=== PATIENT | male | born 1955 | race Caucasian/White ===

== ENCOUNTER 2018-04-20 21:17 | Inpatient (IN) | payer OTHER ==
[2018-04-20] MEDS ORDERED: Alum-Mag Hydrox-Simethicone Susp (30 mL) PO ONE (22:23)
[2018-04-20] MEDS ORDERED: Alum-Mag Hydrox-Simethicone Susp (30 mL) ONE (22:36)
--- NOTE | 2018-04-20 22:41 | C.PDOC ---
History Of Present Illness 62 year old male presents with epigastric pain for the past one day. Denies fever, chest pain, dyspnea, nausea, vomiting, or diarrhea. Patient has had similar pain before, he last had it last week and states it eventually went away. He has been taking medication for the pain, notes the pain is constant with no alleviating or exacerbating factors. Time Seen by Provider: 04/20/18 22:03 Chief Complaint (Nursing): Abdominal Pain History Per: Patient History/Exam Limitations: no limitations Onset/Duration Of Symptoms: Days (1) Current Symptoms Are (Timing): Still Present Location Of Pain/Discomfort: Epigastric Quality Of Discomfort: Unable To Describe Associated Symptoms: denies: Fever, Chills, Nausea, Vomiting, Chest Pain, Other (Dyspnea) Exacerbating Factors: None Alleviating Factors: None Recent travel outside of the [place]: No Past Medical History Reviewed: Historical Data, Nursing Documentation, Vital Signs Vital Signs: Last Vital Signs Temp 98.1 F 04/20/18 21:25 Pulse 78 04/20/18 21:25 Resp 18 04/20/18 21:25 BP 144/82 04/20/18 21:25 Pulse Ox 96 04/20/18 21:25 Family History: States: Unknown Family Hx - Social History Hx Alcohol Use: Yes Hx Substance Use: No - Immunization History Hx Tetanus Toxoid Vaccination: No Hx Influenza Vaccination: No Hx Pneumococcal Vaccination: No Review Of Systems Constitutional: Negative for: Fever, Chills ENT: Negative for: Nose Discharge, Nose Congestion Cardiovascular: Negative for: Chest Pain, Palpitations Respiratory: Negative for: Shortness of Breath Gastrointestinal: Positive for: Abdominal Pain. Negative for: Vomiting, Di arrhea Genitourinary: Negative for: Dysuria, Hematuria Musculoskeletal: Negative for: Back Pain Neurological: Negative for: Weakness, Numbness Physical Exam - Physical Exam Appears: Non-toxic Skin: Normal Color, Warm, Dry Head: Atraumatic, Normacephalic Eye(s): bilateral: Normal Inspection Oral Mucosa: Moist Neck: Normal, Supple Chest: Symmetrical, No Tenderness Cardiovascular: Rhythm Regular Respiratory: Normal Breath Sounds, No Rales, No Rhonchi, No Wheezing Gastrointestinal/Abdominal: Soft, Tenderness (Mild epigastric), No Guarding, No Rebound Back: No CVA Tenderness Neurological/Psych: Oriented x3, Normal Speech ED Course And Treatment - Laboratory Results Result Diagrams: 04/20/18 22:40 04/20/18 22:40 O2 Sat by Pulse Oximetry: 96 (Room air) Pulse Ox Interpretation: Normal - CT Scan/US CT abd/pel Other Rad Studies (CT/US): Read By Radiologist, Radiology Report Reviewed CT/US Interpretation: CT SCAN OF THE ABDOMEN AND PELVIS WITHOUT ORAL OR IV CONTRAST. CLINICAL INDICATION: Patient with mid upper quadrant pain. TECHNIQUE: Axial and reformatted sagittal and coronal images of the abdomen pelvis obtained without IV contrast administration. COMPARISON: None. FI NDINGS: Bilateral basilar subsegmental atelectatic pulmonary changes. Normal unenhanced liver. Diffusely thickened gallbladder and nondilated extrahepatic biliary system. Normal unenhanced spleen. Normal pancreas. . Normal bilateral adrenal glands. Normal size of the right kidney. There is no right renal mass. There are no right renal calculi. There is no right hydronephrosis. Normal visualized right ureter. Normal size of the left kidney. There is no left renal mass. There are no left renal calculi. There is no left hydronephrosis. Normal visualized left ureter. Normal visualized stomach. Normal small intestine. Uncomplicated diverticulosis with mild amount of fecal residue in the colon. The appendix is visualized and appears normal. There is no demonstrated peritoneal fluid. Normal abdominal aorta. Normal inferior vena cava. Normal retroperitoneum. . Normal urinary bladder. There is no pelvic mass lesion or lymphadenopathy. There is no pelvic fluid. 4.8x3.5 cm benign lipoma of the right lateral anterior abdominal wall. . Normal abdominal wall. Normal osseous structures. IMPRESSION: Thickened gallbladder which is suspicious for an acute inflammatory pathology. Sonographic evaluation is suggested. Reactive thickening of the adjacent second portion of the duodenum. US gallbladder Other Rad Studies (CT/US): Read By Radiologist CT/US Interpretation: Impression: Acute calculus cholecystitis Medical Decision Making Medical Decision Making: Plan: * EKG * Blood work * Maalox * Viscous lidocaine Patient given meds and labs done. Results discussed with patient, who still complains of pain. He then produced an Rx from Dr. Olivarez for a stat CT abd/pe lvis without contrast, so this was ordered. Toradol ivp ordered for continued pain after GI cocktail. CT results noted. U/s ordered. Ultrasound shows acute cholecystitis. Results discussed with patient. 8163- Surgery consulted. 0412- Surgery resident at bedside seeing patient. Discussed case with Dr. Castro, will consult but would like admission to medicine service. 0430- Case discussed with Dr. Rosario, hospitalist exhibition organiser, who accepts patient for admission. Disposition - Disposition Disposition: HOSPITALIZED Disposition Time: 04:30 Condition: STABLE Forms: [facility] (Mongolian) - Clinical Impression Clinical Impression: Cholecystitis - Scribe Statement The provider has reviewed the documentation as recorded by the Scribjulio cesar Nicolas All medical record entries made by the Scribe were at my direction and personally dictated by me. I have reviewed the chart and agree that the record accurately reflects my personal performance of the history, physical exam, medical decision making, and the department course for this patient. I have also personally directed, reviewed, and agree with the discharge instructions and disposition.
[2018-04-20 22:45] LABS: BASO % 0.5 % (0.0-2.0); EOS # 0.1 K/uL (0.0-0.7); EOS % 0.7 % (0.0-4.0); HEMOGLOBIN 13.9 g/dL (12.0-18.0); LYMPH # 1.6 K/uL (1.0-4.3); LYMPH % 16.5 % (20.0-40.0); MEAN CELL VOLUME 86.3 fL (80.0-94.0); MEAN CORPUSCULAR HEMOGLOBIN 28.4 pg (27.0-31.0); MEAN CORPUSCULAR HGB CONC 32.9 g/dL (33.0-37.0); MEAN PLATELET VOLUME 7.9 fL (7.2-11.7); MONO # 0.4 K/uL (0.0-0.8); MONO % 4.2 % (0.0-10.0); NEUT # 7.6 K/uL (1.8-7.0); NEUT % 78.1 % (50.0-75.0); RBC 4.88 Mil/uL (4.40-5.90); RED CELL DISTRIBUTION WIDTH 13.1 % (11.5-14.5); WHITE BLOOD COUNT 9.7 K/uL (4.8-10.8)
[2018-04-20 23:01] LABS: ALB/GLOB RATIO 1.6 (1.0-2.1); ALBUMIN 4.6 g/dL (3.5-5.0); ALT/SGPT 30 U/L (21-72); AST/SGOT 32 U/L (17-59); BLOOD UREA NITROGEN 12 mg/dL (9-20); GFR NON-AFRICAN AMERICAN > 60; LIPASE 57 U/L (23-300)
--- NOTE | 2018-04-21 04:35 | CP.PCM.HP ---
<Jes Guerrier - Last Filed: 04/21/18 07:03> History of Present Illness - History of Present Illness History of Present Illness: PGY-1 Jes Guerrier D.O. H&P for Dr. Rosario's service: Patient is a 62 yo male with no known medical history who presents with abdominal pain. Pain is located in the epigastric region and does not radiate. Patient states that the pain started yesterday morning. He noticed it during his break at work after eating tea and bread. Patient says the pain started gradually. He describes it as "crampy" as if his "muscles are pulling." He did not do anything to help relieve the pain. He says he had a similar pain last week on Friday, but it was not as severe and went away on its own. He admits to associated nausea and has not had anything to eat or drink since the onset of pain. He denies vomiting. Denies fevers/chills. Denies diarrhea/constipation. 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, quit smoking 25 years ago, denies illicit drug use PMD: Sher Present on Admission - Present on Admission Any Indicators Present on Admission: No History of DVT/PE: No History of Uncontrolled Diabetes: No Urinary Catheter: No Decubitus Ulcer Present: No History Surgical Site Infection Following: None Review of Systems - Constitutional Constitutional: absent: Chills, Fever, Weight Loss, Weakness - EENT Eyes: absent: Change in Vision Ears: absent: Decreased Hearing Nose/Mouth/Throat: absent: Nasal Congestion, Sore Throat - Cardiovascular Cardiovascular: absent: Chest Pain, Diaphoresis, Palpitations, Pedal Edema - Respiratory Respiratory: absent: Cough, Dyspnea - Gastrointestinal Gastrointestinal: As Per HPI, Abdominal Pain, Nausea. absent: Bloating, Constipation, Diarrhea, Dysphagia, Vomiting - Genitourinary Genitourinary: absent: Dysuria, Hematuria - Musculoskeletal Musculoskeletal: absent: Arthralgias, Myalgias - Integumentary Integumentary: absent: Lesions, Rash - Neurological Neurological: absent: Dizziness, Focal Weakness, Headaches, Sensory Deficit - Psychiatric Psychiatric: absent: Anxiety, Depression Past Patient History - Infectious Disease Hx of Infectious Diseases: None - Tetanus Immunizations Tetanus Immunization: Unknown - Past Medical History & Family History Past Medical History?: No Past Family History: Reviewed and not pertinent - Past Social History Smoking Status: Former Smoker Chewing Tobacco Use: No Cigar Use: No Alcohol: < 2 Drinks/Day Drugs: Denies Home Situation {Lives}: Friends - PSYCHIATRIC Hx Substance Use: No - SURGICAL HISTORY Hx Surgeries: No - ANESTHESIA Hx Anesthesia: No Meds Allergies/Adverse Reactions: Allergies Allergy/AdvReac Type Severity Reaction Status Date / Time No Known Allergies Allergy Verified 04/20/18 21:31 Physical Exam - Constitutional Appears: Non-toxic, No Acute Distress - Head Exam Head Exam: ATRAUMATIC, NORMAL INSPECTION - Eye Exam Eye Exam: EOMI, Normal appearance, PERRL - ENT Exam ENT Exam: Mucous Membranes Moist - Neck Exam Neck exam: Positive for: Normal Inspection - Respiratory Exam Respiratory Exam: Clear to Auscultation Bilateral, NORMAL BREATHING PATTERN - Cardiovascular Exam Cardiovascular Exam: RRR, +S1, +S2 - GI/Abdominal Exam GI & Abdominal Exam: Soft, Tenderness (epigastric). absent: Distended, Guarding, Rebound Additional comments: Claudio's sign negative Rovsing's sign negative - Extremities Exam Extremities exam: Positive for: normal inspection, pedal pulses present. Negative for: pedal edema, tenderness - Back Exam Back exam: NORMAL INSPECTION - Neurological Exam Neurological exam: Alert, CN II-XII Intact, Oriented x3 - Psychiatric Exam Psychiatric exam: Normal Affect, Normal Mood - Skin Skin Exam: Dry, Normal Color, Warm Results - Vital Signs Recent Vital Signs: Last Vital Signs Temp 99.6 F 04/21/18 03:26 Pulse 53 L 04/21/18 03:26 Resp 16 04/21/18 03:26 BP 107/68 04/21/18 03:26 Pulse Ox 96 04/21/18 04:32 - Labs Result Diagrams: 04/20/18 22:40 04/20/18 22:40 Labs: Laboratory Results - last 24 hr 04/20/18 04/20/18 22:40 22:40 WBC 9.7 RBC 4.88 Hgb 13.9 Hct 42.1 MCV 86.3 MCH 28.4 MCHC 32.9 L RDW 13.1 Plt Count 271 MPV 7.9 Neut % (Auto) 78.1 H Lymph % (Auto) 16.5 L Sanders % (Auto) 4.2 Eos % (Auto) 0.7 Baso % (Auto) 0.5 Neut # (Auto) 7.6 H Lymph # (Auto) 1.6 Sanders # (Auto) 0.4 Eos # (Auto) 0.1 Baso # (Auto) 0.0 Sodium 138 Potassium 4.0 Chloride 103 Carbon Dioxide 23 Anion Gap 16 BUN 12 Creatinine 0.5 L Est GFR ( Amer) > 60 Est GFR (Non-Af Amer) > 60 Random Glucose 106 Calcium 9.0 Total Bilirubin 0.6 AST 32 ALT 30 Alkaline Phosphatase 109 Total Protein 7.5 Albumin 4.6 Globulin 2.9 Albumin/Globulin Ratio 1.6 Lipase 57 - Imaging and Cardiology CT scan - abdomen Status: Image reviewed by me, Report reviewed by me US - abdomen Status: Image reviewed by me, Report reviewed by me Assessment & Plan - Assessment and Plan (Free Text) Assessment: Patient is a 62 yo male with no known PMH who presented with abdominal pain. Imaging showed acute calculus cholecystitis; however, patient's pain is epigastric and negative sonographic Claudio's sign. Plan: Epigastric pain- r/o acute cholecystitis, PUD - Afebrile, no leukocytosis - Abd US: acute calculus cholecystitis - CT A/P: thickened gallbladder (6.4 mm), nondilated biliary system (CBD 5.8 mm) - HIDA pending - NPO - D5 1/2 NS @ 100 cc/hr - Pepcid 20 mg IV daily - Surgery consulted (Gloria) Ppx: VTE: SCDs GI: Pepcid 20 mg IV daily Code status: full code Case discussed with attending, Dr. Rosario. <Javon Rosario P - Last Filed: 04/21/18 07:26> Results - Vital Signs Recent Vital Signs: Last Vital Signs Temp 98.8 F 04/21/18 04:54 Pulse 63 04/21/18 04:54 Resp 18 04/21/18 04:54 BP 124/71 04/21/18 04:54 Pulse Ox 100 04/21/18 04:54 - Labs Result Diagrams: 04/20/18 22:40 04/20/18 22:40 Labs: Laboratory Results - last 24 hr 04/20/18 04/20/18 22:40 22:40 WBC 9.7 RBC 4.88 Hgb 13.9 Hct 42.1 MCV 86.3 MCH 28.4 MCHC 32.9 L RDW 13.1 Plt Count 271 MPV 7.9 Neut % (Auto) 78.1 H Lymph % (Auto) 16.5 L Sanders % (Auto) 4.2 Eos % (Auto) 0.7 Baso % (Auto) 0.5 Neut # (Auto) 7.6 H Lymph # (Auto) 1.6 Sanders # (Auto) 0.4 Eos # (Auto) 0.1 Baso # (Auto) 0.0 Sodium 138 Potassium 4.0 Chloride 103 Carbon Dioxide 23 Anion Gap 16 BUN 12 Creatinine 0.5 L Est GFR ( Amer) > 60 Est GFR (Non-Af Amer) > 60 Random Glucose 106 Calcium 9.0 Total Bilirubin 0.6 AST 32 ALT 30 Alkaline Phosphatase 109 Total Protein 7.5 Albumin 4.6 Globulin 2.9 Albumin/Globulin Ratio 1.6 Lipase 57 Attending/Attestation - Attestation I have personally seen and examined this patient.: Yes I have fully participated in the care of the patient.: Yes I have reviewed all pertinent clinical information: Yes Notes (Text): 04/21/18 07:09 Calculus edematous gall bladder, negative instrumentation and controls technician's claudio sign, epigastric tenderness hence consider peptic origin. Plan NPO ivf Hida gi/dvt prophylaxis symptomatic/supportive care. Surgery consult.
--- NOTE | 2018-04-21 04:40 | CP.PCM.CON ---
<Betina Green - Last Filed: 04/21/18 05:06> History of Present Illness - History of Present Illness History of Present Illness: General Surgery Dr. Castro 62 y/o M w/ no known PMHx presents to the ED c/o abd pain. Pt states pain started yesterday in epigastrium. pain does not radiate and is constant. Pt reports similar pain a few days prior that self resolved. Pain is not associated w/ PO intake. Pt denies associated F/C, N/V, D/C, as well as chest pain, SOB, or urinary issues. Pt has no PMD and denies seeing a physician for health screening. PMHx: denies Meds: reviewed in chart NKDA PSHx: denies SHx: quit smoking 50yrs ago; reports 10-15 beers per month; denies drug use FHx: noncontributory Review of Systems - Review of Systems All systems: reviewed and no additional remarkable complaints except (see HPI) Past Patient History - Infectious Disease Hx of Infectious Diseases: None - Past Social History Smoking Status: Never Smoked - PSYCHIATRIC Hx Substance Use: No - SURGICAL HISTORY Hx Surgeries: No - ANESTHESIA Hx Anesthesia: No Meds Allergies/Adverse Reactions: Allergies Allergy/AdvReac Type Severity Reaction Status Date / Time No Known Allergies Allergy Verified 04/20/18 21:31 Physical Exam - Constitutional Appears: Non-toxic, No Acute Distress - Head Exam Head Exam: NORMAL INSPECTION - Eye Exam Eye Exam: Normal appearance. absent: Scleral icterus - ENT Exam ENT Exam: Mucous Membranes Moist - Respiratory Exam Respiratory Exam: NORMAL BREATHING PATTERN. absent: Accessory Muscle Use, Respiratory Distress - Cardiovascular Exam Cardiovascular Exam: REGULAR RHYTHM. absent: Bradycardia, Tachycardia - GI/Abdominal Exam GI & Abdominal Exam: Soft, Tenderness (mild epigastric TTP). absent: Distended, Firm, Guarding, Rebound, Rigid - Expanded GI/Abdominal Exam Expanded Expanded GI & Abdominal Exam: absent: Claudio's Sign - Extremities Exam Extremities exam: Positive for: normal inspection - Neurological Exam Neurological exam: Alert, Oriented x3 - Psychiatric Exam Psychiatric exam: Normal Affect, Normal Mood - Skin Skin Exam: Dry, Intact, Normal Color, Warm Results - Vital Signs Recent Vital Signs: Last Vital Signs Temp 99.6 F 04/21/18 03:26 Pulse 53 L 04/21/18 03:26 Resp 16 02/19/19 03:26 BP 107/68 04/21/18 03:26 Pulse Ox 96 04/21/18 04:32 - Labs Result Diagrams: 04/20/18 22:40 04/20/18 22:40 Labs: Laboratory Results - last 24 hr 04/20/18 04/20/18 22:40 22:40 WBC 9.7 RBC 4.88 Hgb 13.9 Hct 42.1 MCV 86.3 MCH 28.4 MCHC 32.9 L RDW 13.1 Plt Count 271 MPV 7.9 Neut % (Auto) 78.1 H Lymph % (Auto) 16.5 L [place] % (Auto) 4.2 Eos % (Auto) 0.7 Baso % (Auto) 0.5 Neut # (Auto) 7.6 H Lymph # (Auto) 1.6 [place] # (Auto) 0.4 Eos # (Auto) 0.1 Baso # (Auto) 0.0 Sodium 138 Potassium 4.0 Chloride 103 Carbon Dioxide 23 Anion Gap 16 BUN 12 Creatinine 0.5 L Est GFR ( Amer) > 60 Est GFR (Non-Af Amer) > 60 Random Glucose 106 Calcium 9.0 Total Bilirubin 0.6 AST 32 ALT 30 Alkaline Phosphatase 109 Total Protein 7.5 Albumin 4.6 Globulin 2.9 Albumin/Globulin Ratio 1.6 Lipase 57 - Imaging and Cardiology CT scan - abdomen Status: Image reviewed by me, Report reviewed by me US - abdomen Status: Image reviewed by me Assessment & Plan - Assessment and Plan (Free Text) Assessment: 62 y/o M w/ abd pain likely 2/2 symptomatic cholelithiasis vs cholecystitis Plan: - afebrile, no leukocytosis - U/S w/ stones, gb wall edema, no claudio's sign, normal cbd - HIDA r/o acute/chronic cholecystitis - AM Labs - CLD - pain management - pepcid - DVT PPx - encourage OOB to chair/Amb - needs medical work up before surgery Pt discussed w/ Dr. Gloria Green DO PGY3 <Mirza Castro - Last Filed: 04/26/18 21:19> Results - Vital Signs Recent Vital Signs: Last Vital Signs Temp 98.8 F 04/25/18 08:37 Pulse 96 H 04/25/18 08:37 Resp 20 04/25/18 08:37 BP 106/70 04/25/18 08:37 Pulse Ox 95 04/25/18 08:37 - Labs Result Diagrams: 04/25/18 06:47 04/25/18 06:47 Attending/Attestation - Attestation I have personally seen and examined this patient.: Yes I have fully participated in the care of the patient.: Yes I have reviewed all pertinent clinical information: Yes Notes (Text): Pt was seen and examined at bedside Agree with above note and assessment Pt with abdominal pain and nausea Abdomen: Soft, ND, Mild tender in RUQ Labs and radiology reviewed Ass: Cholelithiasis possible cholecystitis Plan : NPO, IVF HIDA scan to r/o cholecystitis IV antibiotics Medical clearance Plan d.w pt in detail. Risk and benefit explained in detail.
[2018-04-21] MEDS ORDERED: HYDROmorphone 0.5 mg/0.5 ml ISec IVP PRN (04:52)
[2018-04-21] MEDS: Dextrose 5%/0.45% NS 1,000 ML IV SCH ×2 (06:45→16:31)
--- NOTE | 2018-04-21 07:20 | US ---
Date of service: 04/21/2018 HISTORY: epigastric pain, thickened gb on ct COMPARISON: None available TECHNIQUE: Sonographic evaluation of the right upper quadrant of the abdomen. FINDINGS: LIVER: Measures 14.7 cm in length.Echogenic liver may be seen in setting of hepatic parenchymal disease or fatty infiltration. No focal hepatic mass identified. The main portal vein appears patent with normal directional flow. No intrahepatic bile duct dilatation. GALLBLADDER: Gallstones. Gallbladder wall appears thickened measuring up to approximately 6 mm. Negative sonographic Claudio's sign as assessed by the microbiology lab assistant. COMMON BILE DUCT: Measures 6 mm. PANCREAS: Not well-visualized. RIGHT KIDNEY: Measures approximately 12.0 x 4.4 x 5.1 cm. No obstructing calculus or hydronephrosis identified. AORTA: Limited visualization appears grossly unremarkable. IVC: Limited visualization appears grossly unremarkable. OTHER FINDINGS: None . IMPRESSION: Cholelithiasis. Gallbladder wall appears thickened. Negative sonographic Claudio's sign as assessed by the microbiology lab assistant. Correlate clinically. Echogenic liver may be seen in setting of hepatic parenchymal disease or fatty infiltration.
[2018-04-21 07:37] LABS: INR 1.1; PROTHROMBIN TIME 12.2 SECONDS (9.7-12.2)
[2018-04-21 07:38] LABS: HEMOGLOBIN 13.6 g/dL (12.0-18.0); MEAN CELL VOLUME 85.8 fL (80.0-94.0); MEAN CORPUSCULAR HEMOGLOBIN 28.7 pg (27.0-31.0); MEAN CORPUSCULAR HGB CONC 33.5 g/dL (33.0-37.0); RBC 4.73 Mil/uL (4.40-5.90); RED CELL DISTRIBUTION WIDTH 12.6 % (11.5-14.5)
[2018-04-21 08:37] LABS: ALB/GLOB RATIO 1.5 (1.0-2.1); ALBUMIN 4.2 g/dL (3.5-5.0); ALT/SGPT 30 U/L (21-72); AST/SGOT 28 U/L (17-59); BLOOD UREA NITROGEN 14 mg/dL (9-20); CALCIUM 9.2 mg/dl (8.6-10.4); GFR NON-AFRICAN AMERICAN > 60
--- NOTE | 2018-04-21 09:12 | CP.PCM.PN ---
<Jaun Clemente - Last Filed: 04/21/18 17:47> Subjective - Date & Time of Evaluation Date of Evaluation: 04/21/18 Time of Evaluation: 09:12 - Subjective Subjective: Progress Note for Hospitalist service Patient seen and examined at bedside. He states he continues to have epigastric pain, improved from prior. He denies vomiting, diarrhea, constipation. He denies fevers, chills, chest pain, shortness of breath, palpitations, urinary discomfort, urinary frequency, leg pain. Objective - Vital Signs/Intake and Output Vital Signs (last 24 hours): Temp Pulse Resp BP Pulse Ox 97.8 F 61 20 112/72 97 04/21/18 08:24 04/21/18 08:24 04/21/18 08:24 04/21/18 08:24 04/21/18 08:24 - Medications Medications: Current Medications Famotidine (Pepcid) 20 mg IVP DAILY [facility] Dextrose/Sodium Chloride (Dextrose 5%/0.45% Ns 1000 Ml) 1,000 mls @ 100 mls/hr IV .Q10H [facility] Last Admin: 04/21/18 06:45 Dose: 100 mls/hr Influenza Virus Vaccine (Flucelvax Quad 8122-1113 Syr) 60 mcg IM .ONCE ONE Stop: 04/23/18 10:01 Pneumococcal Polyvalent Vaccine (Pneumovax 23 Vaccine) 0.5 ml IM .ONCE ONE Stop: 04/23/18 10:01 - Labs Labs: 04/21/18 05:18 04/21/18 05:18 PT 12.2 SECONDS (9.7-12.2) 04/21/18 07:05 INR 1.1 04/21/18 07:05 APTT 36 SECONDS (21-34) H 04/21/18 07:05 - Constitutional Appears: Well, Non-toxic - Head Exam Head Exam: ATRAUMATIC, NORMOCEPHALIC - Eye Exam Eye Exam: EOMI, PERRL - ENT Exam ENT Exam: Mucous Membranes Moist - Neck Exam Neck Exam: Full ROM. absent: Tenderness - Respiratory Exam Respiratory Exam: Clear to Ausculation Bilateral, NORMAL BREATHING PATTERN. absent: Rales, Rhonchi, Wheezes, Respiratory Distress, Stridor - Cardiovascular Exam Cardiovascular Exam: REGULAR RHYTHM, +S1, +S2. absent: Gallop, Rubs, Murmur - GI/Abdominal Exam GI & Abdominal Exam: Soft, Tenderness (Epigastric, no tenderness of RUQ, no lower quadrant tenderness ), Normal Bowel Sounds. absent: Distended, Firm, Guarding, Rigid, Rebound - Exam Exam: NORMAL INSPECTION - Extremities Exam Extremities Exam: Normal Capillary Refill. absent: Calf Tenderness, Pedal Edema - Back Exam Back Exam: absent: CVA tenderness (L), CVA tenderness (R) - Neurological Exam Neurological Exam: Alert, Awake, CN II-XII Intact, Oriented x3 - Psychiatric Exam Psychiatric exam: Normal Affect, Normal Mood - Skin Skin Exam: Dry, Intact, Warm Assessment and Plan - Assessment and Plan (Free Text) Assessment: 62 yo male with no known PMH who presented with abdominal pain. Imaging showed acute calculus cholecystitis Plan: Acute Cholecystitis - Afebrile, no leukocytosis - Abd US: Cholelithiasis. Gallbladder wall appears thickened. Negative sonographic Claudio's sign as assessed by the employment training specialist. Correlate clinically. Echogenic liver may be seen in setting of hepatic parenchymal disease or fatty infiltration. - CT Abdomen/Pelvis: Thickened gallbladder with evidence of pericholecystic edema. No calcified gallstones evident. Correlate clinically for acute cholecystitis. Adjacent wall thickening/inflammatory changes involving the duodenum. Enlarged heterogeneous prostate gland. Recommend correlation with PSA. - HIDA Abnormal hepatobiliary Scan. The cystic duct is occluded, presumptive evidence for acute cholecystitis. - Keep NPO for breakfast starting 04/22/18 - D5 1/ NS @ 100 cc/hr - Pepcid 20 mg IV daily - Surgery consulted (Gloria), help appreciated Plan for surgery 04/22/18 - EKG NSR at 74 - CXR no focal consolidation Prophylaxis VTE: SCDs GI: Pepcid 20 mg IV daily Code status: full code Case discussed with Dr. Chelsea Clemente, PGY1 <Pollo Tran - Last Filed: 04/26/18 16:42> Objective - Vital Signs/Intake and Output Vital Signs (last 24 hours): Temp Pulse Resp BP Pulse Ox 98.8 F 96 H 20 106/70 95 04/25/18 08:37 04/25/18 08:37 04/25/18 08:37 04/25/18 08:37 04/25/18 08:37 - Labs Labs: 04/25/18 06:47 04/25/18 06:47 PT 12.2 SECONDS (9.7-12.2) 04/21/18 07:05 INR 1.1 04/21/18 07:05 APTT 36 SECONDS (21-34) H 04/21/18 07:05 Attending/Attestation - Attestation I have personally seen and examined this patient.: Yes I have fully participated in the care of the patient.: Yes I have reviewed all pertinent clinical information, including history, physical exam and plan: Yes Notes (Text): seen and examined by me Assessment and the plan discussed with the resident and I agree with the documentation
--- NOTE | 2018-04-21 09:17 | CT ---
PROCEDURE: CT Abdomen and Pelvis without Oral or IV contrast. HISTORY: abdominal pain COMPARISON: Gallbladder ultrasound performed 04/21/18 TECHNIQUE: Contiguous axial images of the abdomen and pelvis. No oral or IV contrast administered. Coronal and Sagittal reformats generated and reviewed. Radiation dose: Total exam DLP = 668.86 mGy-cm. This CT exam was performed using one or more of the following dose reduction techniques: Automated exposure control, adjustment of the mA and/or kV according to patient size, and/or use of iterative reconstruction technique. FINDINGS: There is limited evaluation of the solid organs without the administration of IV contrast. LOWER THORAX: No visible consolidation, pleural effusion, or pneumothorax. LIVER: Unremarkable. GALLBLADDER AND BILE DUCTS: Unremarkable. PANCREAS: Unremarkable. SPLEEN: Unremarkable. ADRENALS: Unremarkable. KIDNEYS AND URETERS: No hydronephrosis or obstructing renal calculus. BLADDER: The urinary bladder appears unremarkable. REPRODUCTIVE: Enlarged heterogenous prostate gland APPENDIX: The appendix appears within normal limits of caliber. No secondary signs of acute appendicitis. BOWEL: The stomach is nondistended. Lack of oral contrast limits evaluation for bowel pathology. Adjacent to the gallbladder, there is evidence of wall thickening/inflammatory changes involving the duodenum. The bowel loops appear within normal limits of caliber without evidence of intestinal obstruction. PERITONEUM: No significant free fluid. No definite free air. LYMPH NODES: No bulky lymphadenopathy identified. VASCULATURE: No significant atherosclerotic calcification. No aortic aneurysm. BONES: No acute osseous abnormality is detected. OTHER FINDINGS: 4.8 x 3.5 cm fatty lesion consistent with lipoma, right lateral anterior abdominal wall. IMPRESSION: Thickened gallbladder with evidence of pericholecystic edema. No calcified gallstones evident. Correlate clinically for acute cholecystitis. Adjacent wall thickening/inflammatory changes involving the duodenum. Enlarged heterogeneous prostate gland. Recommend correlation with PSA. Additional findings as above. Preliminary impression was provided by [facility].
--- NOTE | 2018-04-21 09:39 | RAD ---
HISTORY: pre-op COMPARISON: None available TECHNIQUE: Chest PA and lateral FINDINGS: LUNGS: No focal consolidation. Please note that chest x-ray has limited sensitivity for the detection of pulmonary masses. PLEURA: No significant pleural effusion identified. No definite pneumothorax . CARDIOVASCULAR: Heart size appears within normal limits. No atherosclerotic calcification present. OSSEOUS STRUCTURES: No acute osseous abnormality identified. VISUALIZED UPPER ABDOMEN: Unremarkable. OTHER FINDINGS: None. IMPRESSION: No focal consolidation.
--- NOTE | 2018-04-21 11:47 | NM ---
Date of service: 04/21/2018 PROCEDURE: Nuclear Medicine Hepatobiliary Scan HISTORY: Cholelithiasis. Gallbladder wall edema. COMPARISON: April 20, 2018 abdominal ultrasound. TECHNIQUE: 6.1 mCi of technetium 99m Mebrofenin was administered intravenously. Planar images of the abdomen were obtained at 5 min intervals to 60 mins. Delayed images were also obtained. FINDINGS: LIVER: Timely and homogenous uptake. COMMON BILE DUCT: identified at 10 mins. GALLBLADDER: Not visible at 65 min. No additional radionuclide identified in the liver and therefore extending the study beyond this point is not warranted.. SMALL BOWEL: Identified at 10 mins. IMPRESSION: Abnormal hepatobiliary Scan. The cystic duct is occluded, presumptive evidence for acute cholecystitis.
--- NOTE | 2018-04-21 20:17 | CARD ---
APPROVED REPORT Date of service: 04/20/2018 EKG Measurement Heart [id number] <Conclusion> Normal sinus rhythm Normal ECG
[2018-04-22] MEDS: Dextrose 5%/0.45% NS 1,000 ML IV SCH ×2 (02:40→06:59)
--- NOTE | 2018-04-22 07:10 | CP.PCM.PN ---
<Jaun Clemente - Last Filed: 04/22/18 16:53> Subjective - Date & Time of Evaluation Date of Evaluation: 04/22/18 Time of Evaluation: 07:10 - Subjective Subjective: Progress Note for Hospitalist service Patient seen and examined at bedside. He states that he has mild epigastric pain without fevers, chills, headache, dizziness, chest pain, shortness of breath, palpitations, nausea, vomiting, diarrhea, urinary discomfort, leg pain. Objective - Vital Signs/Intake and Output Vital Signs (last 24 hours): Temp Pulse Resp BP Pulse Ox 97.6 F 64 20 116/75 98 04/22/18 00:00 04/22/18 00:00 04/22/18 00:00 04/22/18 00:00 04/22/18 00:00 Intake and Output: 04/22/18 04/22/18 06:59 18:59 Intake Total 1900 Balance 1900 - Medications Medications: Current Medications Famotidine (Pepcid) 20 mg IVP DAILY [facility] Last Admin: 04/21/18 11:00 Dose: 20 mg Dextrose/Sodium Chloride (Dextrose 5%/0.45% Ns 1000 Ml) 1,000 mls @ 100 mls/hr IV .Q10H [facility] Last Admin: 04/22/18 06:59 Dose: 100 mls/hr Influenza Virus Vaccine (Flucelvax Quad 7702-1426 Syr) 60 mcg IM .ONCE ONE Stop: 04/23/18 10:01 Pneumococcal Polyvalent Vaccine (Pneumovax 23 Vaccine) 0.5 ml IM .ONCE ONE Stop: 04/23/18 10:01 - Labs Labs: 04/21/18 05:18 04/21/18 05:18 PT 12.2 SECONDS (9.7-12.2) 04/21/18 07:05 INR 1.1 04/21/18 07:05 APTT 36 SECONDS (21-34) H 04/21/18 07:05 - Constitutional Appears: Well, No Acute Distress - Head Exam Head Exam: ATRAUMATIC, NORMOCEPHALIC - Eye Exam Eye Exam: EOMI, PERRL - ENT Exam ENT Exam: Mucous Membranes Moist - Neck Exam Neck Exam: Full ROM. absent: Tenderness - Respiratory Exam Respiratory Exam: Clear to Ausculation Bilateral, NORMAL BREATHING PATTERN. absent: Rales, Rhonchi, Wheezes, Respiratory Distress, Stridor - Cardiovascular Exam Cardiovascular Exam: REGULAR RHYTHM, +S1, +S2. absent: Gallop, Rubs, Murmur - GI/Abdominal Exam GI & Abdominal Exam: Soft, Tenderness (Mild epigastric tenderness ), Normal Bowel Sounds. absent: Distended, Firm, Guarding, Rigid - Extremities Exam Extremities Exam: Normal Capillary Refill. absent: Calf Tenderness, Pedal Edema - Back Exam Back Exam: absent: CVA tenderness (L), CVA tenderness (R) - Neurological Exam Neurological Exam: Alert, Awake, Oriented x3 - Psychiatric Exam Psychiatric exam: Normal Affect, Normal Mood - Skin Skin Exam: Dry, Intact, Warm Assessment and Plan - Assessment and Plan (Free Text) Assessment: 62 yo male with no known PMH who presented with abdominal pain. Imaging showed acute calculus cholecystitis, scheduled for robotic cholecystectomy on 04/22/18. Plan: Acute Cholecystitis, status post lap cholecystectom day 0 - Afebrile, no leukocytosis - Abd US: Cholelithiasis. Gallbladder wall appears thickened. Negative sonographic Claudio's sign as assessed by the customer sales advisor. Correlate clinically. Echogenic liver may be seen in setting of hepatic parenchymal disease or fatty infiltration. - CT Abdomen/Pelvis: Thickened gallbladder with evidence of pericholecystic edema. No calcified gallstones evident. Correlate clinically for acute cholecystitis. Adjacent wall thickening/inflammatory changes involving the duodenum. Enlarged heterogeneous prostate gland. Recommend correlation with PSA. - HIDA Abnormal hepatobiliary Scan. The cystic duct is occluded, presumptive evidence for acute cholecystitis. - D5 1/2 NS @ 100 cc/hr - Pepcid 20 mg IV daily - Surgery consulted (Gloria), help appreciated - EKG NSR at 74 - CXR no focal consolidation - Status post lap cholecystectomy on 04/22/18, Morphine 4mg IV Q4 PRN Dilaudid 0.5mg IVP Q5 Percocet Q4 PRN Post op check: patient is comfortable, pain controlled, dressing clean, dry and intact. Drain present with minimal output. Started on Zosyn 3.375g IV Q6 Prophylaxis VTE: SCDs GI: Pepcid 20 mg IV daily Code status: full code Case discussed with Dr. Uzair Clemente, PGY1 <Evan Dunne - Last Filed: 04/22/18 17:20> Objective - Vital Signs/Intake and Output Vital Signs (last 24 hours): Temp Pulse Resp BP Pulse Ox 97.9 F 76 20 105/66 94 L 04/22/18 15:05 04/22/18 15:05 04/22/18 15:05 04/22/18 15:05 04/22/18 15:05 Intake and Output: 04/22/18 04/22/18 06:59 18:59 Intake Total 1899 1949 Output Total Balance 1899 1948 - Medications Medications: Current Medications Acetaminophen (Tylenol 325mg Tab) 650 mg PO Q6 PRN PRN Reason: Pain, Mild (1-3) Famotidine (Pepcid) 20 mg IVP DAILY [facility] Last Admin: 04/22/18 09:01 Dose: 20 mg Hydromorphone HCl (Dilaudid) 0.5 mg IVP Q5M PRN PRN Reason: Pain, moderate (4-7) Dextrose/Sodium Chloride (Dextrose 5%/0.45% Ns 1000 Ml) 1,000 mls @ 100 mls/hr IV .Q10H [facility] Last Admin: 04/22/18 06:59 Dose: 100 mls/hr Piperacillin Sod/Tazobactam Sod (Zosyn 3.375 Gm Iv Premix) 3.375 gm in 50 mls @ 100 mls/hr IVPB Q6H [facility]; Protocol Influenza Virus Vaccine (Flucelvax Quad [id number] Syr) 60 mcg IM .ONCE ONE Stop: 04/23/18 10:01 Morphine Sulfate (Morphine) 4 mg IVP Q4 PRN PRN Reason: Pain, severe (8-10) Ondansetron HCl (Zofran Inj) 4 mg IVP Q4 PRN PRN Reason: Nausea/Vomiting Oxycodone/Acetaminophen (Percocet 5/325 Mg Tab) 1 tab PO Q4H PRN PRN Reason: Pain, moderate (4-7) Stop: 04/25/18 13:47 Pneumococcal Polyvalent Vaccine (Pneumovax 23 Vaccine) 0.5 ml IM .ONCE ONE Stop: 04/23/18 10:01 - Labs Labs: 04/22/18 06:58 04/22/18 06:58 PT 12.2 SECONDS (9.7-12.2) 04/21/18 07:05 INR 1.1 04/21/18 07:05 APTT 36 SECONDS (21-34) H 04/21/18 07:05 Attending/Attestation - Attestation I have personally seen and examined this patient.: Yes I have fully participated in the care of the patient.: Yes I have reviewed all pertinent clinical information, including history, physical exam and plan: Yes Notes (Text): gone to the OR with surgery Notes reviewed; labs noted
[2018-04-22 07:36] LABS: ALB/GLOB RATIO 1.4 (1.0-2.1); ALBUMIN 3.9 g/dL (3.5-5.0); ALT/SGPT 30 U/L (21-72); AST/SGOT 29 U/L (17-59); BLOOD UREA NITROGEN 14 mg/dL (9-20); CALCIUM 8.8 mg/dl (8.6-10.4); GFR NON-AFRICAN AMERICAN > 60
[2018-04-22 07:38] LABS: BASO % 0.6 % (0.0-2.0); EOS # 0.3 K/uL (0.0-0.7); EOS % 4.8 % (0.0-4.0); LYMPH # 1.4 K/uL (1.0-4.3); LYMPH % 23.4 % (20.0-40.0); MEAN CELL VOLUME 86.2 fL (80.0-94.0); MEAN CORPUSCULAR HEMOGLOBIN 29.4 pg (27.0-31.0); MEAN CORPUSCULAR HGB CONC 34.1 g/dL (33.0-37.0); MEAN PLATELET VOLUME 8.9 fL (7.2-11.7); MONO # 0.4 K/uL (0.0-0.8); MONO % 6.9 % (0.0-10.0); NEUT # 3.9 K/uL (1.8-7.0); NEUT % 64.3 % (50.0-75.0); RBC 4.76 Mil/uL (4.40-5.90); RED CELL DISTRIBUTION WIDTH 13.1 % (11.5-14.5); WHITE BLOOD COUNT 6.1 K/uL (4.8-10.8)
[2018-04-22] MEDS ORDERED: ceFAZolin 1 gm in NS 0 GM/0 ML BAG IVPB ONE (09:26)
[2018-04-22] MEDS ORDERED: ceFAZolin 1 gm in NS 1 GM/100 ML BAG IVPB ONE ×2 (09:26→09:30)
[2018-04-22] MEDS ORDERED: Lidocaine/Epinephrine 1% 1:100000 10 ML IJ ONE (09:27)
[2018-04-22] MEDS ORDERED: Propofol 10 mg/ml Inj (20 ML) ONE (09:57)
[2018-04-22] MEDS ORDERED: Bupivacaine 0.25% 20 ML INJ IJ ONE (09:57)
[2018-04-22] MEDS ORDERED: Rocuronium 10 mg/ml (5 ml) ONE (09:58)
[2018-04-22] MEDS ORDERED: Midazolam 2 MG/2 ML VIAL ONE (09:59)
[2018-04-22] MEDS: HYDROmorphone 0.5 mg/0.5 ml ISec IVP PRN ×2 (13:25→13:50)
--- NOTE | 2018-04-22 13:45 | PCM.SURG1 ---
Surgeon's Initial Post Op Note - Surgeon's Notes Surgeon: Dr. Castro Driver Helper: Ximena REYES Type of Anesthesia: General Endo Pre-Operative Diagnosis: cholelithaisis, cholecystitis Operative Findings: see dictation Post-Operative Diagnosis: same Operation Performed: robot-assisted laparoscopic cholecystectomy Specimen/Specimens Removed: gallbladder Estimated Blood Loss: EBL {In ML}: 100 Blood Products Given: N/A Drains Used: No Drains Post-Op Condition: Good Date of Surgery/Procedure: 04/22/18 Time of Surgery/Procedure: 11:30
[2018-04-22] MEDS ORDERED: Oxycodone/Acetaminophen 5/325 mg Tab PO PRN (13:46)
[2018-04-22] MEDS ORDERED: HYDROmorphone 0.5 mg/0.5 ml ISec IVP PRN (14:02)
[2018-04-22 14:40] VITALS: RESP 20
[2018-04-22] MEDS: Piperacill/Tazo 3.375gm in Dex 3.375 GM/50 ML BAG IVPB SCH ×2 (19:03→21:27)
[2018-04-23] MEDS: Dextrose 5%/0.45% NS 1,000 ML IV SCH ×4 (00:14→21:36)
--- NOTE | 2018-04-23 00:17 | OP ---
PROCEDURE DATE: 04/22/2018 PREOPERATIVE DIAGNOSES: 1. Cvglz-[id number]-okuvrtu cholecystitis with cholelithiasis. 2. Abdominal pain. POSTOPERATIVE DIAGNOSES: 1. Wngxd-dw-wqnwbon cholecystitis. 2. Hydrops of the gallbladder. 3. Extensive postinflammatory adhesions of right upper quadrant. 4. Umbilical hernia. PROCEDURES DONE: 1. Robotic cholecystectomy. 2. Robotic drainage of hydrops of the gallbladder and right upper quadrant fluid collection. 3. Robotic extensive enterolysis and lysis of adhesion. 4. Open umbilical hernia repair, primary closure without mesh. SURGEON: Mirza Castro MD GIFT CONSULTANT: JAMES Hammond ANESTHESIA: General endotracheal tube anesthesia. ESTIMATED BLOOD LOSS: Around 100 mL. DRAIN: A 19-[place] Balbir drain was placed. COMPLICATIONS: None. INTRAOPERATIVE FINDINGS: The patient had czeas-ut-eiihsla extremely inflamed gallbladder with extensive adhesions of the omentum, colon, and duodenum to the gallbladder and the patient also had hydrops of the gallbladder that was aspirated and extensive enterolysis and lysis of adhesion were done. Due to extensive inflammation, it took approximately 40-60 minutes extra for the routine procedure. DESCRIPTION OF PROCEDURE: On intraoperative steps, this is a 62-year-old male, who was diagnosed with chronic cholecystitis with cholelithiasis with abdominal pain and the patient was consented for the robotic cholecystectomy, possible open, brought to the OR, placed supine on operating table. After induction of the anesthesia, the abdomen was prepped and draped in the usual sterile fashion. A supraumbilical incision was made, the patient was found to have umbilical hernia, and incision was made through the hernial defect and a port was placed, pneumo was created. Another 3-8-mm port was placed in the upper abdomen. Robot was brought in. Camera arm as well as arm 1 and arm 2 were docked. The gallbladder appeared to be extremely distended and edematous. First aspiration of the gallbladder was done and the patient had chronic extensive adhesion of the colon, duodenum to the gallbladder, and extensive lysis of adhesion was done, and the infundibulum of the gallbladder was identified. The dissection was carried down and the duodenum was dissected more and the Calot's triangle was identified. The intraoperative Firefly was used to identify the ductal anatomy and the common bile duct was identified and now the dissection was done in the phlegmon with blunt and sharp dissection. The cystic duct and cystic artery were identified and a top-down approach was done. Critical view of the safety was also identified and the cystic duct was clipped at three places and cut in between two clips near the gallbladder, and now the cystic artery had two branches there with both branches were clipped and cut near the gallbladder was dissected free from the gallbladder fossa. The perihepatic fluid collection was completely drained. The suction irrigation was done and proper hemostasis was achieved and 19-[place] Balbir drain was placed. All the ports were taken under vision. Pneumo was deflated after undocking the robot and now the umbilical port site hernial defect was repaired in multiple layers, the fascia with 0-Prolene UR-6 multiple sutures and the subcu with 0-Vicryl, skin with 4-0 Monocryl at all the port sites, and dry sterile dressing was applied. The patient tolerated the procedure well. Count of instrument and gauze was correct. There was no apparent complication. The patient was extubated in the OR and sent to the postanesthesia care unit in stable condition. Mirza Castro MD
[2018-04-23] MEDS: Piperacill/Tazo 3.375gm in Dex 3.375 GM/50 ML BAG IVPB SCH ×4 (03:56→21:46)
[2018-04-23] MEDS: Morphine 4 MG/ML VIAL IVP PRN ×4 (04:18→21:45)
[2018-04-23 06:22] LABS: BASO % 0.3 % (0.0-2.0); EOS # 0.2 K/uL (0.0-0.7); EOS % 1.9 % (0.0-4.0); HEMOGLOBIN 13.4 g/dL (12.0-18.0); LYMPH # 1.3 K/uL (1.0-4.3); LYMPH % 16.5 % (20.0-40.0); MEAN CORPUSCULAR HEMOGLOBIN 29.1 pg (27.0-31.0); MEAN CORPUSCULAR HGB CONC 33.4 g/dL (33.0-37.0); MEAN PLATELET VOLUME 8.7 fL (7.2-11.7); MONO # 0.5 K/uL (0.0-0.8); MONO % 5.8 % (0.0-10.0); NEUT % 75.5 % (50.0-75.0); RBC 4.59 Mil/uL (4.40-5.90); RED CELL DISTRIBUTION WIDTH 13.1 % (11.5-14.5); WHITE BLOOD COUNT 7.9 K/uL (4.8-10.8)
[2018-04-23 06:47] LABS: ALB/GLOB RATIO 1.4 (1.0-2.1); ALBUMIN 3.8 g/dL (3.5-5.0); ALT/SGPT 80 U/L (21-72); AST/SGOT 104 U/L (17-59); BLOOD UREA NITROGEN 11 mg/dL (9-20); CALCIUM 8.5 mg/dl (8.6-10.4); GFR NON-AFRICAN AMERICAN > 60
[2018-04-23] MEDS ORDERED: Potassium Chloride 20 mEq/15 ml LIQ UD PO ONE (06:50)
--- NOTE | 2018-04-23 06:57 | CP.PCM.PN ---
Subjective - Date & Time of Evaluation Date of Evaluation: 04/23/18 Time of Evaluation: 06:57 - Subjective Subjective: Progress Note for Hospitalist service Patient seen and examined at bedside. Patient is status post robotic cholecystectomy and umbilical hernia repair, Day 1. He states he has been ambulating at pain. Denies flatus, bowel movement, nausea, vomiting. States he has had pain overnight which prevented him from sleeping. He states he was walking around his room last night. Objective - Vital Signs/Intake and Output Vital Signs (last 24 hours): Temp Pulse Resp BP Pulse Ox 97.8 F 64 20 134/78 95 04/23/18 04:09 04/23/18 04:09 04/23/18 04:09 04/23/18 04:09 04/23/18 04:09 Intake and Output: 04/22/18 04/23/18 18:59 06:59 Intake Total 1950 2140 Output Total 1 480 Balance 1949 1660 - Medications Medications: Current Medications Acetaminophen (Tylenol 325mg Tab) 650 mg PO Q6 PRN PRN Reason: Pain, Mild (1-3) Famotidine (Pepcid) 20 mg IVP DAILY [facility] Last Admin: 04/22/18 09:01 Dose: 20 mg Dextrose/Sodium Chloride (Dextrose 5%/0.45% Ns 1000 Ml) 1,000 mls @ 100 mls/hr IV .Q10H [facility] Last Admin: 04/23/18 00:14 Dose: 100 mls/hr Piperacillin Sod/Tazobactam Sod (Zosyn 3.375 Gm Iv Premix) 3.375 gm in 50 mls @ 100 mls/hr IVPB Q6H [facility]; Protocol Last Admin: 04/23/18 03:56 Dose: 100 mls/hr Potassium Chloride (Potassium Chloride 20 Meq/100 Ml) 20 meq in 100 mls @ 50 mls/hr IVPB ONCE ONE Stop: 04/23/18 08:49 Influenza Virus Vaccine (Flucelvax Quad [id number] Syr) 60 mcg IM .ONCE ONE Stop: 04/23/18 10:01 Morphine Sulfate (Morphine) 4 mg IVP Q4 PRN PRN Reason: Pain, severe (8-10) Last Admin: 04/23/18 04:18 Dose: 4 mg Ondansetron HCl (Zofran Inj) 4 mg IVP Q4 PRN PRN Reason: Nausea/Vomiting Oxycodone/Acetaminophen (Percocet 5/325 Mg Tab) 1 tab PO Q4H PRN PRN Reason: Pain, moderate (4-7) Stop: 04/25/18 13:47 Last Admin: 04/23/18 00:12 Dose: 1 tab Pneumococcal Polyvalent Vaccine (Pneumovax 23 Vaccine) 0.5 ml IM .ONCE ONE Stop: 04/23/18 10:01 - Labs Labs: 04/23/18 06:09 04/23/18 06:09 PT 12.2 SECONDS (9.7-12.2) 04/21/18 07:05 INR 1.1 04/21/18 07:05 APTT 36 SECONDS (21-34) H 04/21/18 07:05 - Constitutional Appears: Well, No Acute Distress - Head Exam Head Exam: ATRAUMATIC, NORMOCEPHALIC - Eye Exam Eye Exam: EOMI, PERRL - ENT Exam ENT Exam: Mucous Membranes Moist - Neck Exam Neck Exam: Full ROM - Respiratory Exam Respiratory Exam: Clear to Ausculation Bilateral. absent: Rales, Rhonchi, Wheezes, Respiratory Distress, Stridor - Cardiovascular Exam Cardiovascular Exam: REGULAR RHYTHM, +S1, +S2 - GI/Abdominal Exam GI & Abdominal Exam: Soft, Tenderness (at incision sites. multiple laparascopic dressing clean, dry, intact. Balbir Drain with minimal output ) - Extremities Exam Extremities Exam: absent: Calf Tenderness, Pedal Edema - Neurological Exam Neurological Exam: Alert, Awake, Oriented x3 - Psychiatric Exam Psychiatric exam: Normal Affect, Normal Mood Assessment and Plan - Assessment and Plan (Free Text) Assessment: 62 yo male with no known PMH who presented with abdominal pain. Imaging showed acute calculus cholecystitis, status post robotic cholecystectomy - Day 1 Plan: Acute Cholecystitis, status post lap cholecystectom day 1 - Afebrile, no leukocytosis - Abd US: Cholelithiasis. Gallbladder wall appears thickened. Negative sonographic Claudio's sign as assessed by the solid tire finisher. Correlate clinically. Echogenic liver may be seen in setting of hepatic parenchymal disease or fatty infiltration. - CT Abdomen/Pelvis: Thickened gallbladder with evidence of pericholecystic edema. No calcified gallstones evident. Correlate clinically for acute cholecystitis. Adjacent wall thickening/inflammatory changes involving the duodenum. Enlarged heterogeneous prostate gland. Recommend correlation with PSA. - HIDA Abnormal hepatobiliary Scan. The cystic duct is occluded, presumptive evidence for acute cholecystitis. - D5 1/2 NS @ 100 cc/hr - Pepcid 20 mg IV daily - Surgery consulted (Gloria), help appreciated - EKG NSR at 74 - CXR no focal consolidation - Status post lap cholecystectomy on 04/22/18, Day 1 today Morphine 4mg IV Q4 PRN Percocet Q4 PRN Zosyn 3.375g IV Q6 (started 04/22/17) Prophylaxis VTE: SCDs GI: Pepcid 20 mg IV daily Code status: full code Case discussed with Dr. Redd Clemente, PGY1
--- NOTE | 2018-04-23 08:33 | CP.PCM.PN ---
<Denise Longoria P - Last Filed: 04/23/18 09:45> Subjective - Date & Time of Evaluation Date of Evaluation: 04/23/18 Time of Evaluation: 07:00 - Subjective Subjective: PROGRESS NOTE FOR DR. CASTRO. 62 M POD 1 s/p robotic cholecystectomy and umbilical hernia repair. Patient seen and examined at bedside. Reports pain overnight that prevented him from sleeping. He has been ambulating. Denies flatus, bowel movement, nausea, vomiting, fever and chills. Objective - Vital Signs/Intake and Output Vital Signs (last 24 hours): Temp Pulse Resp BP Pulse Ox 97.4 F L 61 20 111/70 95 04/23/18 07:49 04/23/18 07:49 04/23/18 07:49 04/23/18 07:49 04/23/18 07:49 Intake and Output: 04/23/18 04/23/18 06:59 18:59 Intake Total 2140 Output Total 480 Balance 1660 - Medications Medications: Current Medications Acetaminophen (Tylenol 325mg Tab) 650 mg PO Q6 PRN PRN Reason: Pain, Mild (1-3) Famotidine (Pepcid) 20 mg IVP DAILY [facility] Last Admin: 04/22/18 09:01 Dose: 20 mg Dextrose/Sodium Chloride (Dextrose 5%/0.45% Ns 1000 Ml) 1,000 mls @ 100 mls/hr IV .Q10H [facility] Last Admin: 04/23/18 00:14 Dose: 100 mls/hr Piperacillin Sod/Tazobactam Sod (Zosyn 3.375 Gm Iv Premix) 3.375 gm in 50 mls @ 100 mls/hr IVPB Q6H [facility]; Protocol Last Admin: 04/23/18 03:56 Dose: 100 mls/hr Potassium Chloride (Potassium Chloride 20 Meq/100 Ml) 20 meq in 100 mls @ 50 mls/hr IVPB ONCE ONE Stop: 04/23/18 08:49 Last Admin: 04/23/18 07:04 Dose: 50 mls/hr Influenza Virus Vaccine (Flucelvax Quad [id number] Syr) 60 mcg IM .ONCE ONE Stop: 04/23/18 10:01 Morphine Sulfate (Morphine) 4 mg IVP Q4 PRN PRN Reason: Pain, severe (8-10) Last Admin: 04/23/18 04:18 Dose: 4 mg Ondansetron HCl (Zofran Inj) 4 mg IVP Q4 PRN PRN Reason: Nausea/Vomiting Oxycodone/Acetaminophen (Percocet 5/325 Mg Tab) 1 tab PO Q4H PRN PRN Reason: Pain, moderate (4-7) Stop: 04/25/18 13:47 Last Admin: 04/23/18 00:12 Dose: 1 tab Pneumococcal Polyvalent Vaccine (Pneumovax 23 Vaccine) 0.5 ml IM .ONCE ONE Stop: 04/23/18 10:01 - Labs Labs: 04/23/18 06:09 04/23/18 06:09 PT 12.2 SECONDS (9.7-12.2) 04/21/18 07:05 INR 1.1 04/21/18 07:05 APTT 36 SECONDS (21-34) H 04/21/18 07:05 - Constitutional Appears: Non-toxic, No Acute Distress - Head Exam Head Exam: ATRAUMATIC, NORMOCEPHALIC - Eye Exam Eye Exam: Normal appearance - Neck Exam Neck Exam: Full ROM - Respiratory Exam Respiratory Exam: NORMAL BREATHING PATTERN - GI/Abdominal Exam GI & Abdominal Exam: Soft, Tenderness (at incision sites). absent: Guarding, Rebound Additional comments: multiple laparoscopy incision dressings clean, dry, intact. - Extremities Exam Extremities Exam: Full ROM - Neurological Exam Neurological Exam: Alert, Awake, Oriented x3 - Psychiatric Exam Psychiatric exam: Normal Affect, Normal Mood - Skin Skin Exam: Dry, Normal Color, Warm Assessment and Plan - Assessment and Plan (Free Text) Assessment: 62 M POD 1 s/p robotic cholecystectomy and umbilical hernia repair Plan: -Hepatic/low fat diet -Continue pain medications -Encourage ambulation -Incentive spirometer -Replete electrolytes as needed Further recs as per Dr. Gloria Longoria, PGY-1 <Mirza Castro - Last Filed: 04/26/18 21:22> Objective - Vital Signs/Intake and Output Vital Signs (last 24 hours): Temp Pulse Resp BP Pulse Ox 98.8 F 96 H 20 106/70 95 04/25/18 08:37 04/25/18 08:37 04/25/18 08:37 04/25/18 08:37 04/25/18 08:37 - Labs Labs: 04/25/18 06:47 04/25/18 06:47 PT 12.2 SECONDS (9.7-12.2) 04/21/18 07:05 INR 1.1 04/21/18 07:05 APTT 36 SECONDS (21-34) H 04/21/18 07:05 Attending/Attestation - Attestation I have personally seen and examined this patient.: Yes I have fully participated in the care of the patient.: Yes I have reviewed all pertinent clinical information, including history, physical exam and plan: Yes Notes (Text): Pt was seen and examined at bedside Agree with above note and assessment Pt is improving clinically Mildly distended Stool softener DC plan Plan d.w pt in detail.
[2018-04-23] MEDS ORDERED: Influenza Vaccine 60 mcg/0.5 mL SYR (4YR UP) IM ONE ×2 (10:00→13:30)
[2018-04-23] MEDS ORDERED: Pneumococcal 23-Valent Vaccine IM ONE ×2 (10:00→13:31)
[2018-04-24] MEDS: Piperacill/Tazo 3.375gm in Dex 3.375 GM/50 ML BAG IVPB SCH ×4 (03:38→21:05)
[2018-04-24] MEDS: Dextrose 5%/0.45% NS 1,000 ML IV SCH (04:30)
--- NOTE | 2018-04-24 06:56 | CP.PCM.PN ---
Subjective - Date & Time of Evaluation Date of Evaluation: 04/24/18 Time of Evaluation: 06:56 - Subjective Subjective: Progress Note for Hospitalist service Patient seen and examined at bedside. He states he has a mild cough since yesterday. He states he has pain in his abdomen when he takes a deep breath. He denies fevers, chills, headache, chest pain, abdominal pain, nausea, vomiting, diarrhea, leg pain. Objective - Vital Signs/Intake and Output Vital Signs (last 24 hours): Temp Pulse Resp BP Pulse Ox 99.3 F 89 20 111/69 94 L 04/24/18 00:00 04/24/18 00:00 04/24/18 00:00 04/24/18 00:00 04/24/18 00:00 Intake and Output: 04/23/18 04/24/18 18:59 06:59 Intake Total 1300 2290 Output Total 20 Balance 1300 2270 - Medications Medications: Current Medications Acetaminophen (Tylenol 325mg Tab) 650 mg PO Q6 PRN PRN Reason: Pain, Mild (1-3) Famotidine (Pepcid) 20 mg IVP DAILY [facility] Last Admin: 04/23/18 11:00 Dose: 20 mg Dextrose/Sodium Chloride (Dextrose 5%/0.45% Ns 1000 Ml) 1,000 mls @ 100 mls/hr IV .Q10H [facility] Last Admin: 04/23/18 21:36 Dose: Not Given Piperacillin Sod/Tazobactam Sod (Zosyn 3.375 Gm Iv Premix) 3.375 gm in 50 mls @ 100 mls/hr IVPB Q6H ANDREA; Protocol Last Admin: 04/24/18 03:38 Dose: 100 mls/hr Morphine Sulfate (Morphine) 4 mg IVP Q4 PRN PRN Reason: Pain, severe (8-10) Last Admin: 04/23/18 21:45 Dose: 4 mg Ondansetron HCl (Zofran Inj) 4 mg IVP Q4 PRN PRN Reason: Nausea/Vomiting Oxycodone/Acetaminophen (Percocet 5/325 Mg Tab) 1 tab PO Q4H PRN PRN Reason: Pain, moderate (4-7) Stop: 04/25/18 13:47 Last Admin: 04/23/18 00:12 Dose: 1 tab - Labs Labs: 04/23/18 06:09 04/23/18 06:09 PT 12.2 SECONDS (9.7-12.2) 04/21/18 07:05 INR 1.1 04/21/18 07:05 APTT 36 SECONDS (21-34) H 04/21/18 07:05 - Constitutional Appears: Well, No Acute Distress - Head Exam Head Exam: ATRAUMATIC, NORMOCEPHALIC - Eye Exam Eye Exam: EOMI. absent: PERRL - ENT Exam ENT Exam: Mucous Membranes Moist - Neck Exam Neck Exam: Full ROM. absent: Tenderness - Respiratory Exam Respiratory Exam: Decreased Breath Sounds. absent: Rales, Rhonchi, Wheezes, Respiratory Distress, Stridor - Cardiovascular Exam Cardiovascular Exam: REGULAR RHYTHM, +S1, +S2. absent: Gallop, Rubs, Murmur - GI/Abdominal Exam GI & Abdominal Exam: Soft, Normal Bowel Sounds. absent: Distended, Firm, Guarding, Rigid, Tenderness Additional comments: Dressings, clean, dry, intact. Drain removed by surgical team today. - Extremities Exam Extremities Exam: absent: Calf Tenderness, Pedal Edema - Neurological Exam Neurological Exam: Alert, Awake, Oriented x3 - Psychiatric Exam Psychiatric exam: Normal Affect, Normal Mood - Skin Skin Exam: Dry, Intact, Warm Assessment and Plan - Assessment and Plan (Free Text) Assessment: 62 yo male with no known PMH who presented with abdominal pain. Imaging showed acute calculus cholecystitis, status post robotic cholecystectomy - Day 1 Plan: Acute Cholecystitis, status post lap cholecystectomy day 2 - Afebrile, no leukocytosis - Abd US: Cholelithiasis. Gallbladder wall appears thickened. Negative sonographic Claudio's sign as assessed by the folder machine. Correlate clinically. Echogenic liver may be seen in setting of hepatic parenchymal disease or fatty infiltration. - CT Abdomen/Pelvis: Thickened gallbladder with evidence of pericholecystic edema. No calcified gallstones evident. Correlate clinically for acute cholecystitis. Adjacent wall thickening/inflammatory changes involving the duodenum. Enlarged heterogeneous prostate gland. Recommend correlation with PSA. - HIDA Abnormal hepatobiliary Scan. The cystic duct is occluded, presumptive evidence for acute cholecystitis. - Pepcid 20 mg IV daily - Surgery consulted (Gloria), help appreciated - EKG NSR at 74 - CXR no focal consolidation - Status post lap cholecystectomy on 04/22/18, Day 2 Morphine 4mg IV Q4 PRN Percocet Q4 PRN Zosyn 3.375g IV Q6 (started 04/22/17) - Patient developed cough. Robitussin 100mg PO 4 PRN - CXR ordered - possible atelectasis vs. infiltrates Continue Zosyn. - CT chest without contrast reveals atelectasis - Duonebs Q4 ANDREA Prophylaxis VTE: SCDs GI: Pepcid 20 mg IV daily Case discussed with Dr. Redd Clemente, PGY1
[2018-04-24 07:04] LABS: BASO % 0.4 % (0.0-2.0); EOS # 0.1 K/uL (0.0-0.7); EOS % 1.5 % (0.0-4.0); HEMOGLOBIN 12.8 g/dL (12.0-18.0); LYMPH # 0.6 K/uL (1.0-4.3); LYMPH % 11.5 % (20.0-40.0); MEAN CELL VOLUME 85.4 fL (80.0-94.0); MEAN CORPUSCULAR HEMOGLOBIN 29.2 pg (27.0-31.0); MEAN CORPUSCULAR HGB CONC 34.2 g/dL (33.0-37.0); MONO # 0.4 K/uL (0.0-0.8); MONO % 7.4 % (0.0-10.0); NEUT # 4.1 K/uL (1.8-7.0); NEUT % 79.2 % (50.0-75.0); NRBC % 0.1 % (0.0-2.0); RBC 4.37 Mil/uL (4.40-5.90); RED CELL DISTRIBUTION WIDTH 12.9 % (11.5-14.5); WHITE BLOOD COUNT 5.2 K/uL (4.8-10.8)
[2018-04-24 07:22] LABS: ALB/GLOB RATIO 1.4 (1.0-2.1); ALBUMIN 3.8 g/dL (3.5-5.0); ALT/SGPT 80 U/L (21-72); AST/SGOT 70 U/L (17-59); BLOOD UREA NITROGEN 8 mg/dL (9-20); CALCIUM 8.5 mg/dl (8.6-10.4); GFR NON-AFRICAN AMERICAN > 60
[2018-04-24 08:37] VITALS: O2SAT 95
--- NOTE | 2018-04-24 08:38 | CP.PCM.PN ---
<Shana Smalls - Last Filed: 04/24/18 08:39> Subjective - Date & Time of Evaluation Date of Evaluation: 04/24/18 Time of Evaluation: 07:00 - Subjective Subjective: GENERAL SURGERY PROGRESS NOTE FOR DR. CASTRO Patient seen and examined at bedside. No acute issues overnight. Pt tolerating diet, ambulating. Denies abdominal pain. No nausea or vomiting. Objective - Vital Signs/Intake and Output Vital Signs (last 24 hours): Temp Pulse Resp BP Pulse Ox 99.3 F 89 20 111/69 94 L 04/24/18 00:00 04/24/18 00:00 04/24/18 00:00 04/24/18 00:00 04/24/18 00:00 Intake and Output: 04/24/18 04/24/18 06:59 18:59 Intake Total 2290 Output Total 20 Balance 2270 - Medications Medications: Current Medications Acetaminophen (Tylenol 325mg Tab) 650 mg PO Q6 PRN PRN Reason: Pain, Mild (1-3) Famotidine (Pepcid) 20 mg IVP DAILY [facility] Last Admin: 04/23/18 11:00 Dose: 20 mg Piperacillin Sod/Tazobactam Sod (Zosyn 3.375 Gm Iv Premix) 3.375 gm in 50 mls @ 100 mls/hr IVPB Q6H ANDREA; Protocol Last Admin: 04/24/18 03:38 Dose: 100 mls/hr Morphine Sulfate (Morphine) 4 mg IVP Q4 PRN PRN Reason: Pain, severe (8-10) Last Admin: 04/23/18 21:45 Dose: 4 mg Ondansetron HCl (Zofran Inj) 4 mg IVP Q4 PRN PRN Reason: Nausea/Vomiting Oxycodone/Acetaminophen (Percocet 5/325 Mg Tab) 1 tab PO Q4H PRN PRN Reason: Pain, moderate (4-7) Stop: 04/25/18 13:47 Last Admin: 04/23/18 00:12 Dose: 1 tab - Labs Labs: 04/24/18 06:51 04/24/18 06:51 PT 12.2 SECONDS (9.7-12.2) 04/21/18 07:05 INR 1.1 04/21/18 07:05 APTT 36 SECONDS (21-34) H 04/21/18 07:05 - Constitutional Appears: Non-toxic, No Acute Distress - Head Exam Head Exam: ATRAUMATIC, NORMAL INSPECTION - Eye Exam Eye Exam: EOMI, Normal appearance - Respiratory Exam Respiratory Exam: NORMAL BREATHING PATTERN. absent: Respiratory Distress - Cardiovascular Exam Cardiovascular Exam: +S1, +S2 - GI/Abdominal Exam GI & Abdominal Exam: Soft, Tenderness (mild diego-incisional tenderness). absent: Distended, Firm, Guarding, Rigid, Rebound Additional comments: Dressings clean/dry/intact Balbir drain in place with 20cc serosanguinous output for past 24 hours - Neurological Exam Neurological Exam: Alert, Awake, Oriented x3 - Psychiatric Exam Psychiatric exam: Normal Affect, Normal Mood - Skin Skin Exam: Dry, Normal Color, Warm Assessment and Plan - Assessment and Plan (Free Text) Assessment: 62yo M with chronic cholecystitis and cholelithiasis now s/p robotic cholecystectomy POD#2 - Balbir drain had 20cc serosanguinous output for past 24 hours - Balbir drain removed this AM - Clear for DC home from surgical standpoint - Discussed plan with Dr. Castro DC instructions: - Leave dressings in place for 3 more days (5 total days after surgery). After that, may remove dressings. - Leave white steri strips in place. They will fall off on their own over time. - May shower after removal of top dressings in 3 days. Do not take a bath or swim for 2 weeks - Avoid heavy lifting for 4 weeks after surgery - Follow up with Dr. Castro in his office in 1-2 weeks. Call to make appointment <Mirza Castro - Last Filed: 04/26/18 21:23> Objective - Vital Signs/Intake and Output Vital Signs (last 24 hours): Temp Pulse Resp BP Pulse Ox 98.8 F 96 H 20 106/70 95 04/25/18 08:37 04/25/18 08:37 04/25/18 08:37 04/25/18 08:37 04/25/18 08:37 - Labs Labs: 04/25/18 06:47 04/25/18 06:47 PT 12.2 SECONDS (9.7-12.2) 04/21/18 07:05 INR 1.1 04/21/18 07:05 APTT 36 SECONDS (21-34) H 04/21/18 07:05 Attending/Attestation - Attestation I have personally seen and examined this patient.: Yes I have fully participated in the care of the patient.: Yes I have reviewed all pertinent clinical information, including history, physical exam and plan: Yes Notes (Text): Pt was seen and examined at bedside Agree with above note and assessment Advance diet as tolerated Reg low fat diet Can be DC home f.u as out pt Plan d.w pt in detail.
[2018-04-24] MEDS: Morphine 4 MG/ML VIAL IVP PRN (09:46)
[2018-04-24] MEDS ORDERED: Albuterol-Ipratrop 3 mg / 0.5 (3 ml) UD INH ONE (11:15)
[2018-04-24] MEDS ORDERED: guaiFENesin 100 mg/5 ml Syrup UD PO PRN (11:15)
[2018-04-24] MEDS ORDERED: Albuterol-Ipratrop 3 mg / 0.5 (3 ml) UD INH PRN (12:00)
--- NOTE | 2018-04-24 13:11 | RAD ---
Date of service: 04/24/2018 HISTORY: cough COMPARISON: Comparison chest dated 04/21/2018 TECHNIQUE: Chest PA and lateral FINDINGS: LUNGS: Poor inspiration with low lung volumes, crowded bronchovascular markings and mild bibasilar atelectasis. PLEURA: No significant pleural effusion identified. No pneumothorax apparent. CARDIOVASCULAR: No aortic atherosclerotic calcification present. Normal cardiac size. No pulmonary vascular congestion. OSSEOUS STRUCTURES: No significant abnormalities. VISUALIZED UPPER ABDOMEN: Normal. OTHER FINDINGS: None. IMPRESSION: Poor inspiration with low lung volumes, crowded bronchovascular markings and mild bibasilar atelectasis.
--- NOTE | 2018-04-24 15:37 | CT ---
Date of service: 04/24/2018 PROCEDURE: CT Chest without contrast HISTORY: Abnormal chest x-ray COMPARISON: Comparison made with prior chest radiograph 04/24/2018 at 11 a.m.. Comparison also made with CT abdomen and pelvis dated 04/21/19 19 which also imaged both lung bases. TECHNIQUE: Contiguous axial images were obtained through the chest without intravenous contrast enhancement. Sagittal and coronal reconstructions were performed. Radiation dose: Total exam DLP = 530.3 mGy-cm. This CT exam was performed using one or more of the following dose reduction techniques: Automated exposure control, adjustment of the mA and/or kV according to patient size, and/or use of iterative reconstruction technique. FINDINGS: LUNGS: Seen to better advantage are mild subsegmental atelectasis within the posteromedial right lower lobe and left lung base as well as lingular regions all of which are new since prior CT scan. There also appears to be some minimal ground-glass opacity in the right middle lobe with some crowded bronchovascular markings possibly representing early atelectasis as well MEDIASTINUM: Heart size is within range of normal. No significant pericardial effusion. Unremarkable thoracic aorta. No aneurysm. Ascending thoracic aorta measures approximately 3.6 cm and descending thoracic aorta measures approximately 2.9 cm. Normal sized heart.No aortic atherosclerotic calcification. Pulmonary trunk measures approximately 3.2 cm.. There are a few small nonspecific mediastinal lymph nodes. Evaluation for hilar adenopathy is limited due to the lack of circulating intravenous contrast material PLEURA: No pleural fluid. No pneumothorax. BONES: No fracture. No destructive lesion. Redemonstrated is a elliptical shaped lipoma within the right anterolateral lower chest wall. Mild multilevel degenerative spondylosis of the thoracic spine. UPPER ABDOMEN: Small amount of free intraperitoneal air seen surrounding the liver in this patient who is recent cholecystectomy.. Infiltration changes and fluid present within the gallbladder fossa. OTHER FINDINGS: None. IMPRESSION: Seen to better advantage are mild subsegmental atelectasis within the posteromedial right lower lobe and left lung base as well as lingular regions all of which are new since prior CT scan. There also appears to be some minimal ground-glass opacity in the right middle lobe with some crowded bronchovascular markings possibly representing early atelectasis as well Patient is status post recent cholecystectomy with small amount of free intraperitoneal air and postoperative changes in the gallbladder fossa.
[2018-04-24] MEDS: Albuterol-Ipratrop 3 mg / 0.5 (3 ml) UD INH SCH ×2 (15:38→20:22)
[2018-04-25] MEDS: Albuterol-Ipratrop 3 mg / 0.5 (3 ml) UD INH SCH ×4 (00:53→14:55)
[2018-04-25] MEDS: Piperacill/Tazo 3.375gm in Dex 3.375 GM/50 ML BAG IVPB SCH ×2 (04:14→11:00)
[2018-04-25 07:07] LABS: BASO % 0.8 % (0.0-2.0); EOS % 0.4 % (0.0-4.0); HEMOGLOBIN 13.2 g/dL (12.0-18.0); LYMPH # 0.8 K/uL (1.0-4.3); LYMPH % 14.8 % (20.0-40.0); MEAN CELL VOLUME 85.3 fL (80.0-94.0); MEAN PLATELET VOLUME 8.7 fL (7.2-11.7); MONO # 0.5 K/uL (0.0-0.8); MONO % 8.9 % (0.0-10.0); NEUT # 4.1 K/uL (1.8-7.0); NEUT % 75.1 % (50.0-75.0); NRBC % 0.1 % (0.0-2.0); RBC 4.55 Mil/uL (4.40-5.90); WHITE BLOOD COUNT 5.5 K/uL (4.8-10.8)
[2018-04-25 07:57] LABS: ALB/GLOB RATIO 1.3 (1.0-2.1); ALBUMIN 3.9 g/dL (3.5-5.0); ALT/SGPT 72 U/L (21-72); AST/SGOT 45 U/L (17-59); BLOOD UREA NITROGEN 11 mg/dL (9-20); CALCIUM 8.7 mg/dl (8.6-10.4); GFR NON-AFRICAN AMERICAN > 60
--- NOTE | 2018-04-25 08:04 | CP.PCM.DIS ---
<Jaun Clemente - Last Filed: 04/25/18 12:03> Provider - Provider Date of Admission: 04/21/18 04:30 Attending physician: Pollo Tran MD Consults: 04/21/18 05:53 General Surgery Consult Routine Comment: Consulting Provider: Mirza Castro Consulting Physician: Mirza Castro Reason for Consult: sx cholelithiasis vs cholecystitis Time Spent in preparation of Discharge (in minutes): 40 Hospital Course - Lab Results Lab Results: Micro Results 04/22/18 13:51 Other: Please Indicate Mycobacterial Culture - Preliminary Most Recent Lab Values WBC 5.5 K/uL (4.8-10.8) 04/25/18 06:47 RBC 4.55 Mil/uL (4.40-5.90) 04/25/18 06:47 Hgb 13.2 g/dL (12.0-18.0) 04/25/18 06:47 Hct 38.8 % (35.0-51.0) 04/25/18 06:47 MCV 85.3 fL (80.0-94.0) 04/25/18 06:47 MCH 29.0 pg (27.0-31.0) 04/25/18 06:47 MCHC 34.0 g/dL (33.0-37.0) 04/25/18 06:47 RDW 13.0 % (11.5-14.5) 04/25/18 06:47 Plt Count 208 K/uL (130-400) 04/25/18 06:47 MPV 8.7 fL (7.2-11.7) 04/25/18 06:47 Neut % (Auto) 75.1 % (50.0-75.0) H 04/25/18 06:47 Lymph % (Auto) 14.8 % (20.0-40.0) L 04/25/18 06:47 [place] % (Auto) 8.9 % (0.0-10.0) 04/25/18 06:47 Eos % (Auto) 0.4 % (0.0-4.0) 04/25/18 06:47 Baso % (Auto) 0.8 % (0.0-2.0) 04/25/18 06:47 Neut # (Auto) 4.1 K/uL (1.8-7.0) 04/25/18 06:47 Lymph # (Auto) 0.8 K/uL (1.0-4.3) L 04/25/18 06:47 [place] # (Auto) 0.5 K/uL (0.0-0.8) 04/25/18 06:47 Eos # (Auto) 0.0 K/uL (0.0-0.7) 04/25/18 06:47 Baso # (Auto) 0.0 K/uL (0.0-0.2) 04/25/18 06:47 PT 12.2 SECONDS (9.7-12.2) 04/21/18 07:05 INR 1.1 04/21/18 07:05 APTT 36 SECONDS (21-34) H 04/21/18 07:05 Sodium 136 mmol/L (132-148) 04/25/18 06:47 Potassium 4.0 mmol/L (3.6-5.2) 04/25/18 06:47 Chloride 103 mmol/L (98-107) 04/25/18 06:47 Carbon Dioxide 25 mmol/L (22-30) 04/25/18 06:47 Anion Gap 12 (10-20) 04/25/18 06:47 BUN 11 mg/dL (9-20) 04/25/18 06:47 Creatinine 0.9 mg/dL (0.8-1.5) 04/25/18 06:47 Est GFR ( Amer) > 60 04/25/18 06:47 Est GFR (Non-Af Amer) > 60 04/25/18 06:47 Random Glucose 112 mg/dL (75-110) H 04/25/18 06:47 Calcium 8.7 mg/dl (8.6-10.4) 04/25/18 06:47 Phosphorus 3.7 mg/dL (2.5-4.5) 04/25/18 06:47 Magnesium 2.1 mg/dL (1.6-2.3) 04/25/18 06:47 Total Bilirubin 0.5 mg/dL (0.2-1.3) 04/25/18 06:47 Direct Bilirubin 0.0 mg/dL (0.0-0.4) 04/21/18 05:18 AST 45 U/L (17-59) 04/25/18 06:47 ALT 72 U/L (21-72) 04/25/18 06:47 Alkaline Phosphatase 101 U/L (38-126) 04/25/18 06:47 Total Protein 6.9 g/dL (6.3-8.3) 04/25/18 06:47 Albumin 3.9 g/dL (3.5-5.0) 04/25/18 06:47 Globulin 2.9 gm/dL (2.2-3.9) 04/25/18 06:47 Albumin/Globulin Ratio 1.3 (1.0-2.1) 04/25/18 06:47 Lipase 57 U/L (23-300) 04/20/18 22:40 - Hospital Course Hospital Course: On admission: Patient is a 62 yo male with no known medical history who presents with abdominal pain. Pain is located in the epigastric region and does not radiate. Patient states that the pain started yesterday morning. He noticed it during his break at work after eating tea and bread. Patient says the pain started gradually. He describes it as "crampy" as if his "muscles are pulling." He did not do anything to help relieve the pain. He says he had a similar pain last week on Friday, but it was not as severe and went away on its own. He admits to associated nausea and has not had anything to eat or drink since the onset of pain. He denies vomiting. Denies fevers/chills. Denies diarrhea/constipation. Hospital course: Patient admitted for acute cholecystitis after patient complained of epigastric pain. Imaging revealed acute choleycystitis. Patient had lap cholecystectomy on 04/22/18. Patient was treated with Zosyn after surgery, and pain was controlled. Patient developed cough after his surgery. CXR and CT chest was ordered which revealed atelectasis. Patient remained afebrile, without leukocytosis. Upon discharge, patient was ambulating, passing flatus, without pain. Imaging: - Abd US: Cholelithiasis. Gallbladder wall appears thickened. Negative sonographic Claudio's sign as assessed by the edge bonder. Correlate clinically. Echogenic liver may be seen in setting of hepatic parenchymal disease or fatty infiltration. - CT Abdomen/Pelvis: Thickened gallbladder with evidence of pericholecystic edema. No calcified gallstones evident. Correlate clinically for acute cholecystitis. Adjacent wall thickening/inflammatory changes involving the duodenum. Enlarged heterogeneous prostate gland. Recommend correlation with PSA. - HIDA Abnormal hepatobiliary Scan. The cystic duct is occluded, presumptive evidence for acute cholecystitis. - CXR ordered - possible atelectasis vs. infiltrates Continue Zosyn. - CT chest without contrast reveals atelectasis Discharge instructions: Leave dressings in place for 3 more days (5 total days after surgery). After that, you may remove dressings. Leave white steri strips in place. They will fall off on their own over time. May shower after removal of top dressings in 3 days. Do not take a bath or swim for 2 weeks Avoid heavy lifting for 4 weeks after surgery Follow up with Dr. Castro in his office in 1-2 weeks . Call [phone] to make appointment. His address is [address] [place] [address] Ave [address] [place] [address]. Follow up with your PMD Dr. Olivarez at his office in 2 weeks as well. Please return to the emergency room if you experience any worsening in pain or discomfort. Deje los vendajes en meyer lugar por 3 faustin ms (5 faustin en total despus de la ciruga). Despus de eso, se pueden quitar los apsitos. Dejar las tiras julien en meyer lugar. Se caern solos con el tiempo. Puede ducharse despus de la eliminacin de los apsitos superiores en 3 faustin. No axel un parul o nadar jonas 2 semanas Evite levantar objetos pesados por 4 semanas despus de la ciruga Berto un seguimiento con el Dr. Castro en meyer oficina en 1-2 semanas. Llama [phone] para concertar yamila. Meyer direccion es [address] [place] [address]. Berto un seguimiento con meyer PMD Dr. Olivarez en meyer oficina tambin en 2 semanas. Regrese a la tyrese de emergencias si experimenta algn empeoramiento en el dolor o la incomodidad. Discharge Exam - Head Exam Head Exam: ATRAUMATIC, NORMOCEPHALIC - Eye Exam Eye Exam: EOMI, PERRL - ENT Exam ENT Exam: Mucous Membranes Moist - Neck Exam Neck exam: Full Rom - Respiratory Exam Respiratory Exam: Clear to PA & Lateral, NORMAL BREATHING PATTERN. absent: Rales, Rhonchi, Wheezes - Cardiovascular Exam Cardiovascular Exam: REGULAR RHYTHM, +S1, +S2 - GI/Abdominal Exam GI & Abdominal Exam: Normal Bowel Sounds, Soft Additional comments: Dressings intact, clean, dry. abdomen soft, nontender. - Extremities Exam Extremities exam: pedal pulses present - Back Exam Back exam: absent: CVA tenderness (L), CVA tenderness (R) - Neurological Exam Neurological exam: Alert, CN II-XII Intact, Oriented x3 - Psychiatric Exam Psychiatric exam: Normal Affect, Normal Mood - Skin Skin Exam: Dry, Intact, Warm Discharge Plan - Follow Up Plan Condition: STABLE Disposition: HOME/ ROUTINE Additional Instructions: Discharge instructions: Leave dressings in place for 3 more days (5 total days after surgery). After that, you may remove dressings. Leave white steri strips in place. They will fall off on their own over time. May shower after removal of top dressings in 3 days. Do not take a bath or swim for 2 weeks Avoid heavy lifting for 4 weeks after surgery Follow up with Dr. Castro in his office in 1-2 weeks . Call [phone] to make appointment. His address is [address] [place] [address]. Follow up with your PMD Dr. Olivarez at his office in 2 weeks as well. Please return to the emergency room if you experience any worsening in pain or discomfort. Deje los vendajes en meyer lugar por 3 faustin ms (5 faustin en total despus de la ciruga). Despus de eso, se pueden quitar los apsitos. Dejar las tiras julien en meyer lugar. Se caern solos con el tiempo. Puede ducharse despus de la eliminacin de los apsitos superiores en 3 faustin. No axel un parul o nadar jonas 2 semanas Evite levantar objetos pesados por 4 semanas despus de la ciruga Berto un seguimiento con el Dr. Castro en meyer oficina en 1-2 semanas. Llama [phone] para concertar yamila. [facility] direccion es [address] [place] [address]. Berto un seguimiento con meyer PMD Dr. Olivarez en meyer oficina tambin en 2 semanas. Regrese a la tyrese de emergencias si experimenta algn empeoramiento en el dolor o la incomodidad. Referrals: Mark Olivarez MD [Non-Staff] - Mirza Castro MD [Staff Provider] - <Shelton Brown - Last Filed: 04/25/18 13:05> Provider - Provider Date of Admission: 04/21/18 04:30 Attending physician: Pollo Tran MD Consults: 04/21/18 05:53 General Surgery Consult Routine Comment: Consulting Provider: Mirza Castro Consulting Physician: Mirza Castro Reason for Consult: sx cholelithiasis vs cholecystitis Hospital Course - Lab Results Lab Results: Micro Results 04/22/18 13:51 Other: Please Indicate Mycobacterial Culture - Preliminary Most Recent Lab Values WBC 5.5 K/uL (4.8-10.8) 04/25/18 06:47 RBC 4.55 Mil/uL (4.40-5.90) 04/25/18 06:47 Hgb 13.2 g/dL (12.0-18.0) 04/25/18 06:47 Hct 38.8 % (35.0-51.0) 04/25/18 06:47 MCV 85.3 fL (80.0-94.0) 04/25/18 06:47 MCH 29.0 pg (27.0-31.0) 04/25/18 06:47 MCHC 34.0 g/dL (33.0-37.0) 04/25/18 06:47 RDW 13.0 % (11.5-14.5) 04/25/18 06:47 Plt Count 208 K/uL (130-400) 04/25/18 06:47 MPV 8.7 fL (7.2-11.7) 04/25/18 06:47 Neut % (Auto) 75.1 % (50.0-75.0) H 04/25/18 06:47 Lymph % (Auto) 14.8 % (20.0-40.0) L 04/25/18 06:47 [place] % (Auto) 8.9 % (0.0-10.0) 04/25/18 06:47 Eos % (Auto) 0.4 % (0.0-4.0) 04/25/18 06:47 Baso % (Auto) 0.8 % (0.0-2.0) 04/25/18 06:47 Neut # (Auto) 4.1 K/uL (1.8-7.0) 04/25/18 06:47 Lymph # (Auto) 0.8 K/uL (1.0-4.3) L 04/25/18 06:47 [place] # (Auto) 0.5 K/uL (0.0-0.8) 04/25/18 06:47 Eos # (Auto) 0.0 K/uL (0.0-0.7) 04/25/18 06:47 Baso # (Auto) 0.0 K/uL (0.0-0.2) 04/25/18 06:47 PT 12.2 SECONDS (9.7-12.2) 04/21/18 07:05 INR 1.1 04/21/18 07:05 APTT 36 SECONDS (21-34) H 04/21/18 07:05 Sodium 136 mmol/L (132-148) 04/25/18 06:47 Potassium 4.0 mmol/L (3.6-5.2) 04/25/18 06:47 Chloride 103 mmol/L (98-107) 04/25/18 06:47 Carbon Dioxide 25 mmol/L (22-30) 04/25/18 06:47 Anion Gap 12 (10-20) 04/25/18 06:47 BUN 11 mg/dL (9-20) 04/25/18 06:47 Creatinine 0.9 mg/dL (0.8-1.5) 04/25/18 06:47 Est GFR ( Amer) > 60 04/25/18 06:47 Est GFR (Non-Af Amer) > 60 04/25/18 06:47 Random Glucose 112 mg/dL (75-110) H 04/25/18 06:47 Calcium 8.7 mg/dl (8.6-10.4) 04/25/18 06:47 Phosphorus 3.7 mg/dL (2.5-4.5) 04/25/18 06:47 Magnesium 2.1 mg/dL (1.6-2.3) 04/25/18 06:47 Total Bilirubin 0.5 mg/dL (0.2-1.3) 04/25/18 06:47 Direct Bilirubin 0.0 mg/dL (0.0-0.4) 04/21/18 05:18 AST 45 U/L (17-59) 04/25/18 06:47 ALT 72 U/L (21-72) 04/25/18 06:47 Alkaline Phosphatase 101 U/L (38-126) 04/25/18 06:47 Total Protein 6.9 g/dL (6.3-8.3) 04/25/18 06:47 Albumin 3.9 g/dL (3.5-5.0) 04/25/18 06:47 Globulin 2.9 gm/dL (2.2-3.9) 04/25/18 06:47 Albumin/Globulin Ratio 1.3 (1.0-2.1) 04/25/18 06:47 Lipase 57 U/L (23-300) 04/20/18 22:40 Attending/Attestation - Attestation I have personally seen and examined this patient.: Yes I have fully participated in the care of the patient.: Yes I have reviewed all pertinent clinical information, including history, physical exam and plan: Yes Notes (Text): 04/25/18 13:02 Medical attending: Patient was seen and examined by me. Agree with the above note by the resident The patient was seen and examined by me with the resident The patient is doing well - he was actively walking on his own. Pain was controlled he said The abdomen was clean, there was no bleeding and the dressing was dry He will need follow up with surgery in one to two weeks Shelton Brown
[2018-04-25 08:40] VITALS: BP 106/70; PULSE 96; TEMP 98.8
== END 2018-04-25 16:10 | disposition home or self-care (01) | DRG 263 ==
LOC: C.ER 21:17 → C.3T 04-21 04:30
PROVIDERS: ADMIT Internal Medicine; ATTEND Internal Medicine
PROC: 0F9440Z Drainage of Gallbladder with Drainage Device, Percutaneous Endoscopic Approach (ICD-10-PCS; 2018-04-22)
PROC: 0DNE4ZZ Release Large Intestine, Percutaneous Endoscopic Approach (ICD-10-PCS; 2018-04-22)
PROC: 0DN94ZZ Release Duodenum, Percutaneous Endoscopic Approach (ICD-10-PCS; 2018-04-22)
PROC: 0WUF0JZ Supplement Abdominal Wall with Synthetic Substitute, Open Approach (ICD-10-PCS; 2018-04-22)
PROC: 8E0W0CZ Robotic Assisted Procedure of Trunk Region, Open Approach (ICD-10-PCS; 2018-04-22)
PROC: 0FT44ZZ Resection of Gallbladder, Percutaneous Endoscopic Approach (ICD-10-PCS; principal; 2018-04-22 13:30)
DX: K80.12 Calculus of gallbladder with acute and chronic cholecystitis without obstruction (principal); K82.1 Hydrops of gallbladder; K66.0 Peritoneal adhesions (postprocedural) (postinfection); K42.9 Umbilical hernia without obstruction or gangrene; J98.11 Atelectasis; Z87.891 Personal history of nicotine dependence